=== PATIENT | female | born 2000 | race Caucasian/White ===

== ENCOUNTER 2022-04-27 17:05 | Emergency (ER) | payer OTHER, BC, SELFPAY ==
[2022-04-27 17:29] VITALS: BP 119/82; PULSE 104; RESP 18; TEMP 37.1; O2SAT 99; BMI 24.0
--- NOTE | 2022-04-27 18:32 | ED.NURSE ---
wanted a sandwich and water. is cooperative and pleasant. did request dec assessment.
--- NOTE | 2022-04-27 18:40 | ED.GENADULT ---
HPI - General Adult General Time Seen by Provider: 18:41 <Faustino May MD - Last Filed: 05/27/22 16:52> Date Seen: 04/27/22 <Faustino May MD - Last Filed: 05/27/22 16:52> Chief complaint: Psychiatric Problem/Disorder <Faustino May MD - Last Filed: 05/27/22 16:52> Stated complaint: Suicidal thoughts <Faustino May MD - Last Filed: 05/27/22 16:52> Time Seen by Provider: 04/27/22 17:36 <Faustino May MD - Last Filed: 05/27/22 16:52> Source: patient <Faustino May MD - Last Filed: 05/27/22 16:52> Mode of arrival: ambulatory <Faustino May MD - Last Filed: 05/27/22 16:52> Limitations: no limitations <Faustino May MD - Last Filed: 05/27/22 16:52> History of Present Illness HPI narrative: Sarai is a 22-year-old female from [facility] studying economics past medical history includes ADHD, depression anxiety presents emerged department via private car with suicidal thoughts. Patient states that she was drinking alcohol on Tuesday, she did some cutting with some [place] since her roommate took away all her knives, she denies any other drug use, she does smoke a pipe, no auditory visual hallucinations. She had thoughts of suicide, her plan was to drink a bunch of caffeine in the jump out her dorms window. She met with a public health social worker at school today, he was asking her a lot of questions and was concerned about her mental health status are made for further evaluation. Last time patient was admitted was last November 2020, she saw her nurse practitioner psychiatric provider this March and was doing well. Patient lives in [facility]. Patient denies any regular use of alcohol. Patient does get along with her roommate. No other concerns at this time. <Faustino May MD - Last Filed: 05/27/22 16:52> Related Data Home medications: Home Medications Medication Instructions Recorded Confirmed aripiprazole 5 mg tablet 5 mg PO HS 04/27/22 04/28/22 clonidine HCl 0.3 mg tablet 0.3 mg PO HS 04/27/22 04/28/22 lisdexamfetamine 60 mg capsule 60 mg PO DAILY 04/27/22 04/28/22 (Vyvanse) sertraline 100 mg tablet 250 mg PO DAILY 04/27/22 04/28/22 clonidine HCl 0.1 mg tablet 0.1 mg PO QAM 04/28/22 04/28/22 <Faustino May MD - Last Filed: 05/27/22 16:52> Allergies/adverse reactions: Allergies Allergy/AdvReac Type Severity Reaction Status Date / Time No Known Drug Allergies Allergy Verified 04/27/22 17:34 <Faustino May MD - Last Filed: 05/27/22 16:52> Review of Systems Status of ROS: Reports: 10 or more systems reviewed and unremarkable except as noted in History and below <Faustino May MD - Last Filed: 05/27/22 16:52> [facility] Social History: Social History Smoking Status: Current some day smoker What tobacco products do you use: pipe Do you use any of these nicotine containing products: None How often do you have a drink containing alcohol: 4 or more times a week How many standard drinks containing alcohol do you have on a typical day: 1 or 2 How often do you have six or more drinks on one occasion: Less than monthly AUDIT-C Alcohol total score: 5 Non-prescribed substance use: denies use service: No <Faustino May MD - Last Filed: 05/27/22 16:52> Exam Narrative: Exam Narrative: General: NAD, sitting comfortably HEENT: Pupils equal round reactive to light, extraocular muscles intact Neck: Supple full range of motion Lungs: Clear to auscultation bilateral Heart: Normal sinus rhythm S1-S2 Abdomen: Soft, nontender bowel sounds present Muscle skeletal: Superficial linear lacerations to the volar aspects of both forearms, no signs of infection. Neuro: Alert awake and oriented x3 Psych: Mood and affect normal <Faustino May MD - Last Filed: 05/27/22 16:52> Const: Vital Signs, click to edit/add: Vital Signs - 24 hr 04/27/22 17:29 Temperature 98.8 F Pulse Rate [Right Pulse Oximeter] 104 H Respiratory Rate 18 Blood Pressure [Ri ght Upper Arm] 119/82 Pulse Oximetry 99 Oxygen Delivery Me thod Room Air <Faustino May MD - Last Filed: 05/27/22 16:52> Vital Signs, click to edit/add: Vital Signs - 24 hr 04/27/22 17:29 Temperature 98.8 F Pulse Rate [Right Pulse Oximeter] 104 H Respiratory Rate 18 Blood Pressure [Ri ght Upper Arm] 119/82 Pulse Oximetry 99 Oxygen Delivery Me thod Room Air <Dilcia Cespedes MD - Last Filed: 04/28/22 07:07> Course Course Hospital Course: 6:30 PM: AIDET performed. Workup will include [facility], will obtain basic labs including TSH, cbc, acetaminophen, CMP, salicylate level, serum EtOH, urine and urine test. Differential diagnosis include but not limited to life-threatening diagnosis of severe depression with suicidal toxication with suicidal ideation and risk of self-harm, schizoaffective disorder with risk of self-harm, bipolar disorder with severe depressive phase and risk of self-harm, depression due to hypothyroidism, metabolic derangement or [employer] abnormality <Faustino May MD - Last Filed: 05/27/22 16:52> Reevaluation(s) Reevaluation #1: Spoke with DEC assessment, her recommendations were for admission to inpatient psych, she is currently voluntary at this time, plan to look for placement. If she decides to leave will place her on a hold. <Faustino May MD - Last Filed: 05/27/22 16:52> Time: 19:22 <Faustino May MD - Last Filed: 05/27/22 16:52> Reevaluation #2: Patient was updated on her lab results, CBC showed no abnormalities, serum acetaminophen and salicylate level normal, serum ETOH level within normal limits. TSH, urine drug screen, test and urinalysis pending. Due to shift change transfer of care was given to Dr. John RANGEL, please see her note for final disposition and plan. Patient is medically cleared. <Faustino May MD - Last Filed: 05/27/22 16:52> Time: 20:57 <Faustino May MD - Last Filed: 05/27/22 16:52> Vital Signs Vital signs: Initial Vital Signs Temperature 98.8 F 10/04/22 17:29 Temperature Source Temporal Artery Scan 04/27/22 17:29 Pulse Rate 104 H 04/27/22 17:29 Respiratory Rate 18 04/27/22 17:29 Blood Pressure 119/82 04/27/22 17:29 Blood Pressure Mean 94 04/27/22 17:29 Blood Pressure Position Sitting 04/27/22 17:29 Pulse Oximetry 99 04/27/22 17:29 Oxygen Delivery Method 04/27/22 17:29 Vital Signs Temperature 98.8 F 04/27/22 17:29 Pulse Rate 104 H 04/27/22 17:29 Respiratory Rate 18 04/27/22 17:29 Blood Pressure 119/82 04/27/22 17:29 Pulse Oximetry 99 04/27/22 17:29 Oxygen Delivery Method 04/27/22 17:29 Temperature 98 F 04/28/22 07:00 Pulse Rate 78 04/28/22 07:00 Respiratory Rate 16 04/28/22 07:00 Blood Pressure 115/75 04/28/22 07:00 Pulse Oximetry 98 04/28/22 07:00 Oxygen Delivery Method 04/28/22 07:00 <Faustino May MD - Last Filed: 05/27/22 16:52> Initial Vital Signs Temperature 98.8 F 04/27/22 17:29 Temperature Source Temporal Artery Scan 04/27/22 17:29 Pulse Rate 104 H 04/27/22 17:29 Respiratory Rate 18 04/27/22 17:29 Blood Pressure 119/82 04/27/22 17:29 Blood Pressure Mean 94 04/27/22 17:29 Blood Pressure Position Sitting 04/27/22 17:29 Pulse Oximetry 99 04/27/22 17:29 Oxygen Delivery Method 04/27/22 17:29 Vital Signs Temperature 98.8 F 04/27/22 17:29 Pulse Rate 104 H 04/27/22 17:29 Respiratory Rate 18 04/27/22 17:29 Blood Pressure 119/82 04/27/22 17:29 Pulse Oximetry 99 04/27/22 17:29 Oxygen Delivery Method 04/27/22 17:29 Temperature 98 F 04/28/22 07:00 Pulse Rate 78 04/28/22 07:00 Respiratory Rate 16 04/28/22 07:00 Blood Pressure 115/75 04/28/22 07:00 Pulse Oximetry 98 04/28/22 07:00 Oxygen Delivery Method 04/28/22 07:00 <Dilcia Cespedes MD - Last Filed: 04/28/22 07:07> Medical Decision Making MDM Narrative Medical decision making narrative: I took over care from Dr. Sage ordonez. Patient has remained restful and cooperative during my stay. We received notification from [facility] in [place] that the patient could be accepted for transfer this morning. She requests her morning medications. I do confirm her 250 mg dose of Zoloft is correct and order her clonidine as well. We do not stock her Vyvanse. She will receive breakfast and anticipate her leaving at 7:30 a.m.. She was placed on a 72 hour medical hold but is transferring willingly at this point. Vital signs and labs reviewed with no additional concerns. <Dilcia Cespedes MD - Last Filed: 04/28/22 07:07> Lab Data Labs: Lab Results 04/27/22 04/27/22 04/27/22 Range/Units 19:38 19:38 19:38 WBC 7.88 (4.50-11.00) K/uL RBC 4.94 (4.00-5.20) m/uL Hgb 14.6 (12.0-16.0) gm/dL Hct 44.5 (33.0-51.0) % MCV 90 (80-100) fL MCH 30 (26-34) pg MCHC 33 (32-36) gm/dL RDW Coeff of Miko 12.1 (11.5-15.5) % Plt Count 250 (140-440) K/uL Neut % (Auto) 75.9 H (42.0-72.0) % Lymph % (Auto) 15.9 L (20-44) % [place] % (Auto) 7.0 (0.0-11.0) % Eos % (Auto) 0.1 (0.0-7.0) % Baso % (Auto) 0.3 (0.0-3.0) % Neut # (Auto) 6.00 (1.7-7.0) K/uL Lymph # (Auto) 1.30 (0.90-2.90) K/uL [place] # (Auto) 0.60 (0.00-0.90) K/UL Eos # (Auto) 0.00 (0.00-0.50) K/uL Baso # (Auto) 0.00 (0.00-0.30) K/uL Abs Immat Gran (auto) 0.10 (0.00-0.30) K/uL Imm/Tot Granulo (auto) 0.8 % Sodium 139 (135-149) mmol/L Potassium 3.8 (3.6-5.1) mmol/L Chloride 102 (96-114) mmol/L Carbon Dioxide 23 (20-32) mmol/L BUN 13 (5-24) mg/dL Creatinine 0.6 (0.5-1.5) mg/dL Estimated Creat Clear 128.08 Estimated GFR 131 ml/min Glucose 95 (60-115) mg/dL Calcium 9.8 (8.4-10.6) mg/dL Total Bilirubin 0.6 (0.1-1.5) mg/dL AST 33 (12-35) U/L ALT 14 (4-35) U/L Alkaline Phosphatase 83 (40-150) U/L Total Protein 8.8 H (6.0-8.3) g/dL Albumin 5.3 H (3.3-5.0) g/dL TSH 0.666 (0.270-4.20) uIU/mL Urine Color (Yellow) Urine Appearance (Clear) Urine pH (5.0-8.5) Ur Specific [place] (1.000-1.030) Urine Protein (Negative) Urine Glucose (UA) (Negative) Urine Ketones (Negative) Urine Blood (Negative) Urine Nitrite (Negative) Urine Bilirubin (Negative) Urine Urobilinogen (0.2-1.0) Ur Leukocyte Esterase (Negative) Urine RBC (0-2) Urine WBC (0-5) Ur Squamous Epith Cells (None-Few) Urine Bacteria (None) Urine HCG, Qual (Negative) Salicylates (1.0-10) mg/dL Urine Opiates Screen (Negative) Ur Oxycodone Screen (Negative) Urine Methadone Screen (Negative) Ur Propoxyphene Screen (Negative) Acetaminophen (10.0-30.0) ug/mL Ur Barbiturates Screen (Negative) U Tricyclic Antidepress (Negative) Ur Phencyclidine Scrn (Negative) Ur Amphetamines Screen (Negative) U Methamphetamines Scrn (Negative) U Benzodiazepines Scrn (Negative) Urine Cocaine Screen (Negative) U Marijuana (THC) Screen (Negative) Ur Drug Screen Comment Ethyl Alcohol < 0.01 L (0.01-0.03) % SARS-CoV-2 (PCR) (Negative) Influenza Type A (PCR) (Negative) Influenza Type B (PCR) (Negative) 04/27/22 04/27/22 04/27/22 Range/Units 19:38 20:43 20:43 WBC (4.50-11.00) K/uL RBC (4.00-5.20) m/uL Hgb (12.0-16.0) gm/dL Hct (33.0-51.0) % MCV (80-100) fL MCH (26-34) pg MCHC (32-36) gm/dL RDW Coeff of Miko (11.5-15.5) % Plt Count (140-440) K/uL Neut % (Auto) (42.0-72.0) % Lymph % (Auto) (20-44) % [place] % (Auto) (0.0-11.0) % Eos % (Auto) (0.0-7.0) % Baso % (Auto) (0.0-3.0) % Neut # (Auto) (1.7-7.0) K/uL Lymph # (Auto) (0.90-2.90) K/uL [place] # (Auto) (0.00-0.90) K/UL Eos # (Auto) (0.00-0.50) K/uL Baso # (Auto) (0.00-0.30) K/uL Abs Immat Gran (auto) (0.00-0.30) K/uL Imm/Tot Granulo (auto) % Sodium (135-149) mmol/L Potassium (3.6-5.1) mmol/L Chloride (96-114) mmol/L Carbon Dioxide (20-32) mmol/L BUN (5-24) mg/dL Creatinine (0.5-1.5) mg/dL Estimated Creat Clear Estimated GFR ml/min Glucose (60-115) mg/dL Calcium (8.4-10.6) mg/dL Total Bilirubin (0.1-1.5) mg/dL AST (12-35) U/L ALT (4-35) U/L Alkaline Phosphatase (40-150) U/L Total Protein (6.0-8.3) g/dL Albumin (3.3-5.0) g/dL TSH (0.270-4.20) uIU/mL Urine Color Dark Yellow (Yellow) Urine Appearance Cloudy A (Clear) Urine pH 6.0 (5.0-8.5) Ur Specific [place] >= 1.030 (1.000-1.030) Urine Protein Negative (Negative) Urine Glucose (UA) Negative (Negative) Urine Ketones 4+ A (Negative) Urine Blood 2+ A (Negative) Urine Nitrite Negative (Negative) Urine Bilirubin 2+ A (Negative) Urine Urobilinogen 0.2 (0.2-1.0) Ur Leukocyte Esterase Negative (Negative) Urine RBC 25-50 A (0-2) Urine WBC 2-5 (0-5) Ur Squamous Epith Cells Many A (None-Few) Urine Bacteria None (None) Urine HCG, Qual Negative (Negative) Salicylates < 1.0 L (1.0-10) mg/dL Urine Opiates Screen Negative (Negative) Ur Oxycodone Screen Negative (Negative) Urine Methadone Screen Negative (Negative) Ur Propoxyphene Screen Negative (Negative) Acetaminophen < 10.0 L (10.0-30.0) ug/mL Ur Barbiturates Screen Negative (Negative) U Tricyclic Antidepress Negative (Negative) Ur Phencyclidine Scrn Negative (Negative) Ur Amphetamines Screen POSITIVE A* (Negative) U Methamphetamines Scrn Negative (Negative) U Benzodiazepines Scrn Negative (Negative) Urine Cocaine Screen Negative (Negative) U Marijuana (THC) Screen Negative (Negative) Ur Drug Screen Comment See Note Ethyl Alcohol (0.01-0.03) % SARS-CoV-2 (PCR) (Negative) Influenza Type A (PCR) (Negative) Influenza Type B (PCR) (Negative) 04/27/22 Range/Units 22:36 WBC (4.50-11.00) K/uL RBC (4.00-5.20) m/uL Hgb (12.0-16.0) gm/dL Hct (33.0-51.0) % MCV (80-100) fL MCH (26-34) pg MCHC (32-36) gm/dL RDW Coeff of Miko (11.5-15.5) % Plt Count (140-440) K/uL Neut % (Auto) (42.0-72.0) % Lymph % (Auto) (20-44) % [place] % (Auto) (0.0-11.0) % Eos % (Auto) (0.0-7.0) % Baso % (Auto) (0.0-3.0) % Neut # (Auto) (1.7-7.0) K/uL Lymph # (Auto) (0.90-2.90) K/uL [place] # (Auto) (0.00-0.90) K/UL Eos # (Auto) (0.00-0.50) K/uL Baso # (Auto) (0.00-0.30) K/uL Abs Immat Gran (auto) (0.00-0.30) K/uL Imm/Tot Granulo (auto) % Sodium (135-149) mmol/L Potassium (3.6-5.1) mmol/L Chloride (96-114) mmol/L Carbon Dioxide (20-32) mmol/L BUN (5-24) mg/dL Creatinine (0.5-1.5) mg/dL Estimated Creat Clear Estimated GFR ml/min Glucose (60-115) mg/dL Calcium (8.4-10.6) mg/dL Total Bilirubin (0.1-1.5) mg/dL AST (12-35) U/L ALT (4-35) U/L Alkaline Phosphatase (40-150) U/L Total Protein (6.0-8.3) g/dL Albumin (3.3-5.0) g/dL TSH (0.270-4.20) uIU/mL Urine Color (Yellow) Urine Appearance (Clear) Urine pH (5.0-8.5) Ur Specific [place] (1.000-1.030) Urine Protein (Negative) Urine Glucose (UA) (Negative) Urine Ketones (Negative) Urine Blood (Negative) Urine Nitrite (Negative) Urine Bilirubin (Negative) Urine Urobilinogen (0.2-1.0) Ur Leukocyte Esterase (Negative) Urine RBC (0-2) Urine WBC (0-5) Ur Squamous Epith Cells (None-Few) Urine Bacteria (None) Urine HCG, Qual (Negative) Salicylates (1.0-10) mg/dL Urine Opiates Screen (Negative) Ur Oxycodone Screen (Negative) Urine Methadone Screen (Negative) Ur Propoxyphene Screen (Negative) Acetaminophen (10.0-30.0) ug/mL Ur Barbiturates Screen (Negative) U Tricyclic Antidepress (Negative) Ur Phencyclidine Scrn (Negative) Ur Amphetamines Screen (Negative) U Methamphetamines Scrn (Negative) U Benzodiazepines Scrn (Negative) Urine Cocaine Screen (Negative) U Marijuana (THC) Screen (Negative) Ur Drug Screen Comment Ethyl Alcohol (0.01-0.03) % SARS-CoV-2 (PCR) Negative SARS-CoV-2 (Negative) Influenza Type A (PCR) Negative PCR FLU A (Negative) Influenza Type B (PCR) Negative PCR FLU B (Negative) <Faustino May MD - Last Filed: 05/27/22 16:52> Lab Results 04/27/22 04/27/22 04/27/22 Range/Units 19:38 19:38 19:38 WBC 7.88 (4.50-11.00) K/uL RBC 4.94 (4.00-5.20) m/uL Hgb 14.6 (12.0-16.0) gm/dL Hct 44.5 (33.0-51.0) % MCV 90 (80-100) fL MCH 30 (26-34) pg MCHC 33 (32-36) gm/dL RDW Coeff of Miko 12.1 (11.5-15.5) % Plt Count 250 (140-440) K/uL Neut % (Auto) 75.9 H (42.0-72.0) % Lymph % (Auto) 15.9 L (20-44) % [place] % (Auto) 7.0 (0.0-11.0) % Eos % (Auto) 0.1 (0.0-7.0) % Baso % (Auto) 0.3 (0.0-3.0) % Neut # (Auto) 6.00 (1.7-7.0) K/uL Lymph # (Auto) 1.30 (0.90-2.90) K/uL [place] # (Auto) 0.60 (0.00-0.90) K/UL Eos # (Auto) 0.00 (0.00-0.50) K/uL Baso # (Auto) 0.00 (0.00-0.30) K/uL Abs Immat Gran (auto) 0.10 (0.00-0.30) K/uL Imm/Tot Granulo (auto) 0.8 % Sodium 139 (135-149) mmol/L Potassium 3.8 (3.6-5.1) mmol/L Chloride 102 (96-114) mmol/L Carbon Dioxide 23 (20-32) mmol/L BUN 13 (5-24) mg/dL Creatinine 0.6 (0.5-1.5) mg/dL Estimated Creat Clear 128.08 Estimated GFR 131 ml/min Glucose 95 (60-115) mg/dL Calcium 9.8 (8.4-10.6) mg/dL Total Bilirubin 0.6 (0.1-1.5) mg/dL AST 33 (12-35) U/L ALT 14 (4-35) U/L Alkaline Phosphatase 83 (40-150) U/L Total Protein 8.8 H (6.0-8.3) g/dL Albumin 5.3 H (3.3-5.0) g/dL TSH 0.666 (0.270-4.20) uIU/mL Urine Color (Yellow) Urine Appearance (Clear) Urine pH (5.0-8.5) Ur Specific [place] (1.000-1.030) Urine Protein (Negative) Urine Glucose (UA) (Negative) Urine Ketones (Negative) Urine Blood (Negative) Urine Nitrite (Negative) Urine Bilirubin (Negative) Urine Urobilinogen (0.2-1.0) Ur Leukocyte Esterase (Negative) Urine RBC (0-2) Urine WBC (0-5) Ur Squamous Epith Cells (None-Few) Urine Bacteria (None) Urine HCG, Qual (Negative) Salicylates (1.0-10) mg/dL Urine Opiates Screen (Negative) Ur Oxycodone Screen (Negative) Urine Methadone Screen (Negative) Ur Propoxyphene Screen (Negative) Acetaminophen (10.0-30.0) ug/mL Ur Barbiturates Screen (Negative) U Tricyclic Antidepress (Negative) Ur Phencyclidine Scrn (Negative) Ur Amphetamines Screen (Negative) U Methamphetamines Scrn (Negative) U Benzodiazepines Scrn (Negative) Urine Cocaine Screen (Negative) U Marijuana (THC) Screen (Negative) Ur Drug Screen Comment Ethyl Alcohol < 0.01 L (0.01-0.03) % SARS-CoV-2 (PCR) (Negative) Influenza Type A (PCR) (Negative) Influenza Type B (PCR) (Negative) 04/27/22 04/27/22 04/27/22 Range/Units 19:38 20:43 20:43 WBC (4.50-11.00) K/uL RBC (4.00-5.20) m/uL Hgb (12.0-16.0) gm/dL Hct (33.0-51.0) % MCV (80-100) fL MCH (26-34) pg MCHC (32-36) gm/dL RDW Coeff of Miko (11.5-15.5) % Plt Count (140-440) K/uL Neut % (Auto) (42.0-72.0) % Lymph % (Auto) (20-44) % [place] % (Auto) (0.0-11.0) % Eos % (Auto) (0.0-7.0) % Baso % (Auto) (0.0-3.0) % Neut # (Auto) (1.7-7.0) K/uL Lymph # (Auto) (0.90-2.90) K/uL [place] # (Auto) (0.00-0.90) K/UL Eos # (Auto) (0.00-0.50) K/uL Baso # (Auto) (0.00-0.30) K/uL Abs Immat Gran (auto) (0.00-0.30) K/uL Imm/Tot Granulo (auto) % Sodium (135-149) mmol/L Potassium (3.6-5.1) mmol/L Chloride (96-114) mmol/L Carbon Dioxide (20-32) mmol/L BUN (5-24) mg/dL Creatinine (0.5-1.5) mg/dL Estimated Creat Clear Estimated GFR ml/min Glucose (60-115) mg/dL Calcium (8.4-10.6) mg/dL Total Bilirubin (0.1-1.5) mg/dL AST (12-35) U/L ALT (4-35) U/L Alkaline Phosphatase (40-150) U/L Total Protein (6.0-8.3) g/dL Albumin (3.3-5.0) g/dL TSH (0.270-4.20) uIU/mL Urine Color Dark Yellow (Yellow) Urine Appearance Cloudy A (Clear) Urine pH 6.0 (5.0-8.5) Ur Specific [place] >= 1.030 (1.000-1.030) Urine Protein Negative (Negative) Urine Glucose (UA) Negative (Negative) Urine Ketones 4+ A (Negative) Urine Blood 2+ A (Negative) Urine Nitrite Negative (Negative) Urine Bilirubin 2+ A (Negative) Urine Urobilinogen 0.2 (0.2-1.0) Ur Leukocyte Esterase Negative (Negative) Urine RBC 25-50 A (0-2) Urine WBC 2-5 (0-5) Ur Squamous Epith Cells Many A (None-Few) Urine Bacteria None (None) Urine HCG, Qual Negative (Negative) Salicylates < 1.0 L (1.0-10) mg/dL Urine Opiates Screen Negative (Negative) Ur Oxycodone Screen Negative (Negative) Urine Methadone Screen Negative (Negative) Ur Propoxyphene Screen Negative (Negative) Acetaminophen < 10.0 L (10.0-30.0) ug/mL Ur Barbiturates Screen Negative (Negative) U Tricyclic Antidepress Negative (Negative) Ur Phencyclidine Scrn Negative (Negative) Ur Amphetamines Screen POSITIVE A* (Negative) U Methamphetamines Scrn Negative (Negative) U Benzodiazepines Scrn Negative (Negative) Urine Cocaine Screen Negative (Negative) U Marijuana (THC) Screen Negative (Negative) Ur Drug Screen Comment See Note Ethyl Alcohol (0.01-0.03) % SARS-CoV-2 (PCR) (Negative) Influenza Type A (PCR) (Negative) Influenza Type B (PCR) (Negative) 04/27/22 Range/Units 22:36 WBC (4.50-11.00) K/uL RBC (4.00-5.20) m/uL Hgb (12.0-16.0) gm/dL Hct (33.0-51.0) % MCV (80-100) fL MCH (26-34) pg MCHC (32-36) gm/dL RDW Coeff of Miko (11.5-15.5) % Plt Count (140-440) K/uL Neut % (Auto) (42.0-72.0) % Lymph % (Auto) (20-44) % [place] % (Auto) (0.0-11.0) % Eos % (Auto) (0.0-7.0) % Baso % (Auto) (0.0-3.0) % Neut # (Auto) (1.7-7.0) K/uL Lymph # (Auto) (0.90-2.90) K/uL [place] # (Auto) (0.00-0.90) K/UL Eos # (Auto) (0.00-0.50) K/uL Baso # (Auto) (0.00-0.30) K/uL Abs Immat Gran (auto) (0.00-0.30) K/uL Imm/Tot Granulo (auto) % Sodium (135-149) mmol/L Potassium (3.6-5.1) mmol/L Chloride (96-114) mmol/L Carbon Dioxide (20-32) mmol/L BUN (5-24) mg/dL Creatinine (0.5-1.5) mg/dL Estimated Creat Clear Estimated GFR ml/min Glucose (60-115) mg/dL Calcium (8.4-10.6) mg/dL Total Bilirubin (0.1-1.5) mg/dL AST (12-35) U/L ALT (4-35) U/L Alkaline Phosphatase (40-150) U/L Total Protein (6.0-8.3) g/dL Albumin (3.3-5.0) g/dL TSH (0.270-4.20) uIU/mL Urine Color (Yellow) Urine Appearance (Clear) Urine pH (5.0-8.5) Ur Specific [place] (1.000-1.030) Urine Protein (Negative) Urine Glucose (UA) (Negative) Urine Ketones (Negative) Urine Blood (Negative) Urine Nitrite (Negative) Urine Bilirubin (Negative) Urine Urobilinogen (0.2-1.0) Ur Leukocyte Esterase (Negative) Urine RBC (0-2) Urine WBC (0-5) Ur Squamous Epith Cells (None-Few) Urine Bacteria (None) Urine HCG, Qual (Negative) Salicylates (1.0-10) mg/dL Urine Opiates Screen (Negative) Ur Oxycodone Screen (Negative) Urine Methadone Screen (Negative) Ur Propoxyphene Screen (Negative) Acetaminophen (10.0-30.0) ug/mL Ur Barbiturates Screen (Negative) U Tricyclic Antidepress (Negative) Ur Phencyclidine Scrn (Negative) Ur Amphetamines Screen (Negative) U Methamphetamines Scrn (Negative) U Benzodiazepines Scrn (Negative) Urine Cocaine Screen (Negative) U Marijuana (THC) Screen (Negative) Ur Drug Screen Comment Ethyl Alcohol (0.01-0.03) % SARS-CoV-2 (PCR) Negative SARS-CoV-2 (Negative) Influenza Type A (PCR) Negative PCR FLU A (Negative) Influenza Type B (PCR) Negative PCR FLU B (Negative) <Dilcia Cespedes MD - Last Filed: 04/28/22 07:07> Discharge Plan Discharge Patient Disposition: Home, Self-Care <Faustino May MD - Last Filed: 05/27/22 16:52> Prescriptions: No Action clonidine HCl 0.3 mg tablet 0.3 mg PO HS Label Comments: TAKE 1 TABLET BY MOUTH EVERYDAY AT BEDTIME sertraline 100 mg tablet 250 mg PO DAILY Label Comments: TAKE 2 & 1/2 TABLETS BY MOUTH ONCE A DAY aripiprazole 5 mg tablet 5 mg PO HS Label Comments: TAKE 1 TABLET BY MOUTH EVERYDAY AT BEDTIME Vyvanse 60 mg capsule 60 mg PO DAILY Label Comments: TAKE 1 CAPSULE BY MOUTH EVERY MORNING clonidine HCl 0.1 mg tablet 0.1 mg PO QAM Label Comments: TAKE 1 TABLET BY MOUTH EVERY DAY IN THE MORNING <Faustino May MD - Last Filed: 05/27/22 16:52>
[2022-04-27 20:14] LABS: Albumin* 5.3 g/dL (3.3-5.0); Chloride* 102 mmol/L (96-114); Sodium* 139 mmol/L (135-149)
[2022-04-27 20:15] LABS: Potassium* 3.8 mmol/L (3.6-5.1)
[2022-04-27 20:16] LABS: Creatinine* 0.6 mg/dL (0.5-1.5); Est. Creatinine Clearance* 128.08; Estimated Glomerular Filt Rate 131 ml/min
[2022-04-27 20:17] LABS: Alanine Aminotransferase* 14 U/L (4-35); Alkaline Phosphatase* 83 U/L (40-150); Aspartate Amino Transferase* 33 U/L (12-35); Bilirubin Total* 0.6 mg/dL (0.1-1.5); Blood Urea Nitrogen* 13 mg/dL (5-24); Calcium* 9.8 mg/dL (8.4-10.6); Carbon Dioxide* 23 mmol/L (20-32); Glucose* 95 mg/dL (60-115); Total Protein* 8.8 g/dL (6.0-8.3)
[2022-04-27 20:21] LABS: Ethanol* < 0.01 % (0.01-0.03); Salicylate* < 1.0 mg/dL (1.0-10)
[2022-04-27 20:22] LABS: Acetaminophen* < 10.0 ug/mL (10.0-30.0)
[2022-04-27 20:48] LABS: Appearance Urine Cloudy (Clear); Bilirubin Urine 2+ (Negative); Blood Urine 2+ (Negative); Glucose Urine Negative (Negative); Ketones Urine 4+ (Negative); Leukocyte Esterase Urine Negative (Negative); Nitrite Urine Negative (Negative); Protein Urine Negative (Negative); Specific Gravity Urine >= 1.030 (1.000-1.030); Urobilinogen Urine 0.2 (0.2-1.0)
[2022-04-27 20:55] LABS: Barbiturate Screen Urine Negative (Negative); Benzodiazepines Screen Urine Negative (Negative); Cannabinoid Screen Urine Negative (Negative); Cocaine Screen Urine Negative (Negative); Methadone Screen Urine Negative (Negative); Methamphetamines Screen Urine Negative (Negative); Opiate Screen Urine Negative (Negative); Oxycodone Screen Urine Negative (Negative); Phencyclidine Screen Urine Negative (Negative); Tricyclic Antidepressant Urine Negative (Negative)
[2022-04-27 20:59] LABS: Thyroid Stimulating Hormone* 0.666 uIU/mL (0.270-4.20)
[2022-04-27 21:03] LABS: Hematocrit 44.5 % (33.0-51.0); Hemoglobin* 14.6 gm/dL (12.0-16.0); Mean Corpuscular Hemoglobin 30 pg (26-34); Mean Corpuscular Volume 90 fL (80-100); Red Blood Count 4.94 m/uL (4.00-5.20); White Blood Count* 7.88 K/uL (4.50-11.00)
[2022-04-27 21:03] LABS: Amphetamine Screen Urine POSITIVE (Negative)
--- NOTE | 2022-04-27 21:03 | ED.NURSE ---
call from lab, pos md suad notified.
--- NOTE | 2022-04-27 21:03 | ED.NURSE ---
pt provided second sandwich and apple juice, has pleasant demeanor
[2022-04-27 21:04] LABS: Color Urine Dark Yellow (Yellow)
[2022-04-27 21:04] LABS: Basophils Percent Auto 0.3 % (0.0-3.0); Eosinophils Percent Auto 0.1 % (0.0-7.0); Immature Granulocytes Pct Auto 0.8 %; Lymphocytes Percent Auto 15.9 % (20-44); Mean Corpuscular HGB Conc 33 gm/dL (32-36); Neutrophils Percent Auto 75.9 % (42.0-72.0); Platelet Count* 250 K/uL (140-440); RDW Coefficient of Variation % 12.1 % (11.5-15.5); Slide Review Reflex No
[2022-04-27 21:12] LABS: RBC Urine 25-50 (0-2); Squamous Epithelial Cell Urine Many (None-Few)
[2022-04-27] MEDS: cloNIDine HCL 0.1 MG TABLET 0.3 MG PO (22:25)
[2022-04-27] MEDS: ARIPiprazole 10 MG TABLET 5 MG PO (22:25)
[2022-04-27] MEDS: diphenhydrAMINE 25 MG CAPSULE 50 MG PO (22:25)
[2022-04-27 22:53] LABS: Ur HCG Qualitative* Negative (Negative)
[2022-04-27 23:18] LABS: PCR FLU A Negative PCR FLU A (Negative); PCR FLU B Negative PCR FLU B (Negative)
[2022-04-27 23:51] LABS: SARS PCR* Negative SARS-CoV-2 (Negative)
--- NOTE | 2022-04-28 02:52 | ED.NURSE ---
pt sleeping, visible chest rise and fall
[2022-04-28 07:00] VITALS: BP 115/75; PULSE 78; RESP 16; TEMP 36.6; O2SAT 98
[2022-04-28] MEDS: SERTRALINE 100 MG TABLET 250 MG PO (07:26)
[2022-04-28] MEDS: cloNIDine HCL 0.1 MG TABLET PO (07:26)
--- NOTE | 2022-04-28 07:27 | ED.NURSE ---
did take per zoloft 250 mg and clonidine 0.1 mg po, was given brfst-cheerios and finn milk. ems was dispatched.
--- NOTE | 2022-04-28 08:02 | ED.NURSE ---
report was given to winsome gold at [facility]. is on her way. was cooperative and ate breakfast. cheerios, milk, muffins and juice.
== END 2022-04-28 08:00 | disposition home or self-care (01) ==
PROVIDERS: Student in an Organized Health Care Education/Training Program; Emergency Provider Family Medicine
DX: R45.851 Suicidal ideations (principal)
CPT/HCPCS: 36415; 80053; 80143; 80179; 80306; 81003; 81015; 81025; 82077; 84443; 85025; 87631; 99282; 99284; A9270

== ENCOUNTER 2022-04-28 07:55 | Outpatient (CLI) | payer OTHER, BC, SELFPAY | END 2022-04-28 07:56 | disposition home or self-care (01) | LOC: AMB 06-04 15:28 | PROVIDERS: Visit Provider Family Medicine | DX: R45.851 Suicidal ideations (principal) | CPT/HCPCS: A0425; A0426 ==